=== PATIENT | male | born 1950 | race Caucasian/White ===

== ENCOUNTER 2016-11-10 23:29 | Emergency (ER) | payer OTHER ==
[~2016-11-10] VITALS: Ht 177.8 cm; Wt 81.6 kg
[2016-11-10 23:33] VITALS: BP 169/93; PULSE 67; RESP 16; TEMP 97.8; O2SAT 98
[2016-11-11] MEDS ORDERED: NACL 0.9% 1,000 ML IV ONE (00:20)
[2016-11-11] MEDS ORDERED: chlorproMAZINE HCL 50 MG/ 2 ML AMP IV ONE (00:30)
[2016-11-11] MEDS ORDERED: DIPHENHYDRAMINE INJ 50 MG/ML VIAL IVP ONE (00:30)
[2016-11-11 02:30] VITALS: BP 131/71; PULSE 81; RESP 16; TEMP 98.1; O2SAT 97
== END 2016-11-11 02:30 | disposition home or self-care (01) ==
LOC: EDBD 23:29 → SED 23:29
DX: R51 Headache (principal); E78.00 Pure hypercholesterolemia, unspecified; H53.149 Visual discomfort, unspecified
CPT/HCPCS: 96361; 96374; 96375; 99284; J1200; J3230; J7030

== ENCOUNTER 2019-04-26 23:10 | Emergency (ER) | payer OTHER ==
[~2019-04-26] VITALS: Ht 177.8 cm; Wt 79.4 kg
[2019-04-26 23:15] VITALS: BP_SYST 118
[2019-04-26] MEDS ORDERED: methylPREDNISolone SOD SUCC/PF 62.5 MG/ML VIAL IM ONE (23:45)
[2019-04-26] MEDS ORDERED: EPINEPHrine JECT 1 MG/10 ML SYR IM ONE (23:45)
[2019-04-27] MEDS ORDERED: NACL 0.9% 1,000 ML IV ONE (00:15)
[2019-04-27 01:17] VITALS: BP_SYST 118
== END 2019-04-27 01:17 | disposition home or self-care (01) ==
LOC: SED 23:10
DX: L50.0 Allergic urticaria (principal); F45.8 Other somatoform disorders; E78.00 Pure hypercholesterolemia, unspecified
CPT/HCPCS: 70360; 96372; 99283; J0171; J2930; J7030

== ENCOUNTER 2023-09-19 08:41 | Emergency (ER) | payer OTHER ==
[~2023-09-19] VITALS: Ht 175.3 cm; Wt 78.5 kg
[~2023-09-19 08:41] MED LIST: LEVO750T64 PO; METR-154 PO; ONDA-8 TL; PERC10 PO
[2023-09-19 08:51] VITALS: BP_SYST 132; PULSE 78; RESP 18; TEMP 98.3; O2SAT 98
[2023-09-19] MEDS ORDERED: LORATADINE 10 MG TABLET PO ONE (09:15)
[2023-09-19] MEDS ORDERED: FAMOTIDINE 20 MG TABLET PO ONE (09:15)
[2023-09-19] MEDS ORDERED: methylPREDNISolone SOD SUCC/PF 62.5 MG/ML VIAL IM ONE (09:15)
[2023-09-19] MEDS ORDERED: OMAL150S SQ (09:36)
[2023-09-19] MEDS ORDERED: PRED20TA PO (09:36)
[2023-09-19] MEDS ORDERED: LORA10TA7 PO (09:36)
[2023-09-19 09:59] VITALS: BP_SYST 133; PULSE 78; RESP 18; TEMP 97.9; O2SAT 98
== END 2023-09-19 09:54 | disposition home or self-care (01) ==
LOC: SED 08:41
DX: L50.9 Urticaria, unspecified (principal); Z79.899 Other long term (current) drug therapy
CPT/HCPCS: 99283; 96372; J2930

== ENCOUNTER 2024-05-02 06:22 | Day surgery (SDC) | payer OTHER ==
[~2024-05-02] VITALS: Ht 177.8 cm; Wt 73.5 kg
[~2024-05-02 06:22] MED LIST changes: +AMLO5TAB92 PO; +CIPR500T5 PO; +LEVO100C4 PO; +LORA10TA7 PO; +METO-304 PO; +OMAL150S SQ; +OMAL300A INJ; +PRED20TA PO
[2024-05-02] MEDS ORDERED: fentaNYL CITRATE/PF 100 MCG/2 ML AMP ONE (07:10)
[2024-05-02] MEDS ORDERED: MIDAZOLAM HCL 5 MG/5 ML VIAL ONE (07:10)
[2024-05-02 08:00] VITALS: O2SAT 99
[2024-05-02 14:05] VITALS: BP_SYST 118; PULSE 53; RESP 16; TEMP 97.9
== END 2024-05-02 08:51 | disposition home or self-care (01) ==
LOC: SDS 06:22 → SMU 06:23 → SDS 08:51
PROVIDERS: ATTEND Surgery
DX: K57.92 Diverticulitis of intestine, part unspecified, without perforation or abscess without bleeding (principal); K57.30 Diverticulosis of large intestine without perforation or abscess without bleeding; I10 Essential (primary) hypertension; E78.5 Hyperlipidemia, unspecified; E03.9 Hypothyroidism, unspecified; M19.90 Unspecified osteoarthritis, unspecified site; F41.9 Anxiety disorder, unspecified; Z79.890 Hormone replacement therapy; Z79.899 Other long term (current) drug therapy; Z90.49 Acquired absence of other specified parts of digestive tract
CPT/HCPCS: 45378; 99152; 99153; G0378; J2250; J3010

== ENCOUNTER 2024-05-15 12:00 | Inpatient (IN) | payer OTHER ==
[~2024-05-15] VITALS: Ht 177.8 cm; Wt 72.6 kg
[2024-05-29] MEDS: ACETAMINOPHEN 500 MG TABLET ONE (11:26)
[2024-05-29] MEDS: oxyCODONE HCL 10 MG TAB.ER.12H PO ONE ×2 (11:26→13:22)
[2024-05-29] MEDS: GABAPENTIN 300 MG CAPSULE ONE (11:27)
[2024-05-29] MEDS: CELECOXIB 200 MG CAPSULE ONE (11:27)
[2024-05-29] MEDS: metroNIDAZOLE 500 mg/NS 100 ML PREMIX IV ONE (11:30)
[2024-05-29] MEDS: CELECOXIB 200 MG CAPSULE PO ONE (11:30)
[2024-05-29] MEDS: CEFAZOLIN SOD 2 GM in D5W 50 ML IV ONE (11:30)
[2024-05-29] MEDS: ACETAMINOPHEN 500 MG TABLET PO ONE (11:53)
[2024-05-29] MEDS: GABAPENTIN 300 MG CAPSULE PO ONE (11:53)
[2024-05-29] MEDS: METOPROLOL TARTRATE 25 MG TABLET PO ONE (13:00)
[2024-05-29] MEDS: METOPROLOL TARTRATE 25 MG TABLET ONE (13:09)
[2024-05-29] MEDS ORDERED: SEVOFLURANE 15 MIN GAS INH ONE (13:10)
[2024-05-29] MEDS: MIDAZOLAM HCL 2 MG/2 ML VIAL (VERSED) ONE (13:10)
[2024-05-29] MEDS ORDERED: ROCURONIUM BROMIDE 10 MG/ML (ZEMURON) ONE (13:10)
[2024-05-29] MEDS ORDERED: PROPOFOL 200MG/ 20ML VIAL (DIPRIVAN) IV ONE (13:10)
[2024-05-29] MEDS: fentaNYL CITRATE/PF 100 MCG/2 ML AMP ONE (13:10)
[2024-05-29] MEDS ORDERED: KETOROLAC TROMETHAMINE 30 MG VIAL ONE (13:10)
[2024-05-29] MEDS ORDERED: ePHEDrine sulfate 50 MG/ML VIAL ONE (13:10)
[2024-05-29] MEDS ORDERED: BUPIVACAINE /PF 0.25% 30 ML VIAL INJ ONE (13:10)
[2024-05-29] MEDS ORDERED: ONDANSETRON HCL 4 MG/2 ML VIAL ONE (13:10)
[2024-05-29] MEDS ORDERED: LR 1,000 ML IV.SOLN IV ONE (13:10)
[2024-05-29] MEDS ORDERED: NS IRRIG SOLN 1000 ML IR ONE (13:10)
[2024-05-29] MEDS ORDERED: GLYCOPYRROLATE 0.2 MG/ML VIAL ONE (13:10)
[2024-05-29] MEDS ORDERED: METOCLOPRAMIDE HCL 10 MG/2 ML VIAL ONE (13:10)
[2024-05-29] MEDS ORDERED: SUGAMMADEX SODIUM 200 MG/2 ML VIAL IV ONE (13:10)
[2024-05-29] MEDS: BUPIVACAINE LIPOSOME/PF 266 MG/20 ML VIAL INFIL ONE (13:31)
[2024-05-29] MEDS ORDERED: TAMS-11 PO (14:37)
[2024-05-29] MEDS ORDERED: METO25TA6 PO (14:37)
[2024-05-29] MEDS ORDERED: TRAM50TA2 PO (14:37)
[2024-05-29] MEDS ORDERED: LOSA-412 PO (14:37)
[2024-05-29] MEDS ORDERED: PRAV40TA63 PO ×2 (14:37→16:00)
[2024-05-29] MEDS ORDERED: LEVO100T9 PO (14:37)
[2024-05-29] MEDS ORDERED: LR 1,000 ML IV SCH (15:15)
[2024-05-29] MEDS ORDERED: HYDROmorphone 2 MG/ML VIAL IVP PRN (15:15)
[2024-05-29] MEDS ORDERED: ONDANSETRON HCL 4 MG/2 ML VIAL IVP PRN (15:15)
[2024-05-29] MEDS ORDERED: LEVO100T PO (16:00)
[2024-05-29] MEDS ORDERED: METO25TA3 PO (16:00)
[2024-05-29] MEDS: HYDROmorphone 1 MG/ML INJ. CARTRIDGE ONE (17:09)
[2024-05-29] MEDS: HYDROmorphone 1 MG/ML INJ. CARTRIDGE IVP PRN (17:10)
[2024-05-29 18:38] VITALS: BP_SYST 138; PULSE 61; RESP 18
[2024-05-29] MEDS: HYDROcodone/ACETAMIN 5-325 MG TAB (NORCO/ VICODIN) PO PRN (18:44)
[2024-05-29 20:00] VITALS: BP_SYST 129; PULSE 55; RESP 16; TEMP 96.9; O2SAT 100
[2024-05-29] MEDS: ACETAMINOPHEN 500 MG TABLET PO SCH (22:16)
[2024-05-29] MEDS: GABAPENTIN 300 MG CAPSULE PO SCH (22:16)
[2024-05-29] MEDS: KETOROLAC TROMETHAMINE 15 MG VIAL IVP SCH (22:16)
[2024-05-29] MEDS: BENZOCAINE/MENTHOL 1 EACH LOZENGE MM PRN (23:52)
[2024-05-30 00:31] VITALS: BP_SYST 124; PULSE 65; RESP 18; TEMP 97.7; O2SAT 100
[2024-05-30] MEDS: LR 1,000 ML IV SCH (04:29)
[2024-05-30 08:00] VITALS: BP_SYST 128; PULSE 64; RESP 16; TEMP 97.1; O2SAT 98
[2024-05-30] MEDS: ENOXAPARIN SODIUM 100 MG/ML SYRINGE SUBCUT SCH (08:57)
[2024-05-30 09:27] LABS: BASOPHILS % (AUTO) 0.3 % (0.0-2.0); EOSINOPHILS % (AUTO) 0.1 % (0.0-4.0); HEMATOCRIT 41.3 % (36-54); HEMOGLOBIN 13.6 g/dL (14.0-18.0); LYMPHOCYTES # (AUTO) 0.9 K/uL (1.0-5.5); LYMPHOCYTES % (AUTO) 15.7 % (20.5-51.5); MEAN CORPUSCULAR HEMOGLOBIN 30 pg (27-31); MEAN CORPUSCULAR HGB CONC 33 % (32-36); MEAN CORPUSCULAR VOLUME 91 fL (79.0-98.0); MONOCYTES # (AUTO) 0.5 K/uL (0.0-1.0); MONOCYTES % (AUTO) 8.5 % (1.7-9.3); NEUTROPHILS # (AUTO) 4.3 K/uL (1.8-7.7); NEUTROPHILS % (AUTO) 75.4 % (40.0-70.0); PLATELET COUNT (AUTO) 154 K/uL (130-430); RED BLOOD CELL COUNT(AUTO) 4.54 MIL/uL (4.2-6.2); RED CELL DISTRIBUTION WIDTH 13.2 % (9.0-15.0); WHITE BLOOD COUNT (AUTO) 5.6 K/uL (4.8-10.8)
[2024-05-30 09:43] LABS: ANION GAP 4 (5-15); CALCIUM 8.5 mg/dL (8.4-11.0); CARBON DIOXIDE 28 mmol/L (23-29); CHLORIDE 105 mmol/L (98-107); GLUCOSE 121 mg/dL (74-106); POTASSIUM 4.1 mmol/L (3.5-5.1); SODIUM SERUM 137 mmol/L (136-145); UREA NITROGEN, BLOOD 12 mg/dL (8-21)
[2024-05-30 11:21] VITALS: BP_SYST 124; PULSE 67; RESP 16; TEMP 97.5; O2SAT 98
[2024-05-30] MEDS: ONDANSETRON HCL 4 MG/2 ML VIAL IVP PRN (14:58)
[2024-05-30] MEDS: LEVOTHYROXINE SODIUM 0.1 MG TABLET PO ONE (14:59)
[2024-05-30] MEDS: TAMSULOSIN HCL 0.4 MG CAP PO ONE (14:59)
[2024-05-30] MEDS: LOSARTAN POTASSIUM 25 MG TABLET PO ONE (15:00)
[2024-05-30] MEDS: amLODIPine BESYLATE 5 MG TABLET PO ONE (15:00)
[2024-05-30] MEDS: METOPROLOL TARTRATE 25 MG TABLET PO ONE (15:02)
[2024-05-30 16:10] VITALS: PULSE 75; RESP 15; TEMP 97; O2SAT 100
[2024-05-30] MEDS: HYDROmorphone 1 MG/ML INJ. CARTRIDGE IVP PRN (16:11)
[2024-05-30 20:00] VITALS: BP_SYST 107; PULSE 59; RESP 16; TEMP 96.9; O2SAT 100
[2024-05-31] VITALS: BP_SYST 119; PULSE 60; RESP 16; TEMP 97; O2SAT 97
[2024-05-31 07:31] LABS: BASOPHILS % (AUTO) 0.2 % (0.0-2.0); HEMOGLOBIN 12.9 g/dL (14.0-18.0); LYMPHOCYTES # (AUTO) 0.8 K/uL (1.0-5.5); LYMPHOCYTES % (AUTO) 14.6 % (20.5-51.5); MEAN CORPUSCULAR HEMOGLOBIN 30 pg (27-31); MEAN CORPUSCULAR HGB CONC 33 % (32-36); MEAN CORPUSCULAR VOLUME 91 fL (79.0-98.0); MONOCYTES # (AUTO) 0.4 K/uL (0.0-1.0); MONOCYTES % (AUTO) 7.7 % (1.7-9.3); NEUTROPHILS # (AUTO) 4.4 K/uL (1.8-7.7); NEUTROPHILS % (AUTO) 77.5 % (40.0-70.0); PLATELET COUNT (AUTO) 159 K/uL (130-430); RED BLOOD CELL COUNT(AUTO) 4.29 MIL/uL (4.2-6.2); WHITE BLOOD COUNT (AUTO) 5.7 K/uL (4.8-10.8)
[2024-05-31 07:34] LABS: ANION GAP 6 (5-15); CALCIUM 8.5 mg/dL (8.4-11.0); CARBON DIOXIDE 29 mmol/L (23-29); CHLORIDE 105 mmol/L (98-107); CREATININE 0.96 mg/dL (0.55-1.30); GLUCOSE 95 mg/dL (74-106); POTASSIUM 3.7 mmol/L (3.5-5.1); SODIUM SERUM 140 mmol/L (136-145); UREA NITROGEN, BLOOD 12 mg/dL (8-21)
[2024-05-31 08:12] VITALS: BP_SYST 136; PULSE 68; RESP 16; TEMP 97.8; O2SAT 99
[2024-05-31] MEDS: TAMSULOSIN HCL 0.4 MG CAP PO SCH (08:48)
[2024-05-31] MEDS: amLODIPine BESYLATE 5 MG TABLET PO SCH (08:51)
[2024-05-31] MEDS: LOSARTAN POTASSIUM 25 MG TABLET PO SCH (08:51)
[2024-05-31] MEDS: LEVOTHYROXINE SODIUM 0.1 MG TABLET PO SCH (08:52)
[2024-05-31] MEDS: METOPROLOL TARTRATE 25 MG TABLET PO SCH (08:52)
[2024-05-31] MEDS ORDERED: LEVOTHYROXINE SODIUM 0.1 MG TABLET PO SCH (10:15)
[2024-05-31] MEDS ORDERED: HYDR-3919 PO (11:45)
[2024-05-31 12:53] VITALS: BP_SYST 127; PULSE 64; RESP 17; TEMP 97.7; O2SAT 97
[2024-05-31 15:37] VITALS: BP_SYST 124; PULSE 59; RESP 18; TEMP 98; O2SAT 99
[2024-06-01] MEDS ORDERED: ENOXAPARIN SODIUM 40 MG/0.4 ML SYRINGE SUBCUT SCH (09:00)
== END 2024-05-31 16:07 | disposition home or self-care (01) | DRG 331 ==
LOC: SMU 05-29 10:44 → STU 05-29 19:28
PROVIDERS: ADMIT Surgery; ATTEND Surgery
PROC: 0DBN0ZZ Excision of Sigmoid Colon, Open Approach (ICD-10-PCS; principal; 2024-05-29 13:23)
DX: K57.32 Diverticulitis of large intestine without perforation or abscess without bleeding (principal)
CPT/HCPCS: 36415; 80048; 85025; 86886; 86900; 86901; 87081; 88307; 97116-GP; 97530-GP; C1727; C9290; G0378; J0690; J1170; J1650; J1885; J2405; J2704; J2765; J3010; J3465; J3490; J7060; J7120